=== PATIENT | female | born 1940 | race Caucasian/White ===

== ENCOUNTER 2017-04-01 13:18 | Emergency (ER) | payer OTHER ==
[2017-04-01 14:19] LABS: BASOPHIL % 0.3 % (0-2); PLATELET COUNT 190 x10^3mcL (130-400)
[2017-04-01 14:27] LABS: RED CELL DISTRIBUTION WIDTH 15.5 % (11.5-14.5)
[2017-04-01 14:29] LABS: CALCIUM 8.9 mg/dL (8.5-10.1); CARBON DIOXIDE 29.9 mmol/L (21-32); CHLORIDE SERUM 110 mmol/L (98-107); CREATININE SERUM 1.1 mg/dL (0.6-1.0); GLUCOSE SERUM 100 mg/dL (74-106); POTASSIUM SERUM 3.9 mmol/L (3.5-5.1); SODIUM SERUM 144 mmol/L (136-145)
[2017-04-01 14:42] LABS: ALBUMIN 3.4 g/dL (3.4-5.0); ALKALINE PHOSPHATASE 71 U/L (46-116); ALT/SGPT 17 U/L (14-59); AST/SGOT 25 U/L (15-37); BILIRUBIN TOTAL 0.6 mg/dL (0.20-1.00); T4(THYROXINE) 6.3 ug/dL (4.7-13.3)
[2017-04-01 15:57] LABS: UA SPECIFIC GRAVITY <=1.005 (1.005-1.035); microscopic required? YES; urine erythrocyte 1+ (NEGATIVE)
[2017-04-01 17:36] VITALS: BP 134/79
== END 2017-04-01 17:36 | disposition home or self-care (01) ==
LOC: ED 13:18
PROVIDERS: Emergency Medicine
DX: N39.0 Urinary tract infection, site not specified (principal); G47.00 Insomnia, unspecified; Z85.118 Personal history of other malignant neoplasm of bronchus and lung; Z88.2 Allergy status to sulfonamides; Z88.8 Allergy status to other drugs, medicaments and biological substances
CPT/HCPCS: 36415; J0696

== ENCOUNTER 2017-05-07 11:09 | Inpatient (IN) | payer OTHER ==
[~2017-05-07] VITALS: Ht 172.7 cm; Wt 82.8 kg
[2017-05-07 12:02] LABS: PLATELET COUNT 358 x10^3mcL (130-400)
[2017-05-07 12:12] LABS: CALCIUM 9.1 mg/dL (8.5-10.1); CARBON DIOXIDE 28.3 mmol/L (21-32); CHLORIDE SERUM 107 mmol/L (98-107); CREATININE SERUM 1.1 mg/dL (0.6-1.0); GLUCOSE SERUM 151 mg/dL (74-106); POTASSIUM SERUM 3.8 mmol/L (3.5-5.1); SODIUM SERUM 144 mmol/L (136-145)
[2017-05-07 12:14] LABS: RED CELL DISTRIBUTION WIDTH 16.6 % (11.5-14.5)
[2017-05-07] MEDS ORDERED: LIPI10 PO (12:15)
[2017-05-07 12:23] LABS: microscopic required? YES; urine erythrocyte 2+ (NEGATIVE)
[2017-05-07 13:26] LABS: BAND NEUTROPHIL 4 % (0-10); BASOPHIL 0 % (0-2); MONOCYTE 8 % (0-7); MYELOCYTE 1 % (0-2); PLATELET MORPHOLOGY PLATELETS NORMAL; SEGMENTED NEUTROPHILS 75 % (37-75); rbc morphology (normal/abnorm) ABNORMAL (NORMAL)
[2017-05-07 14:15] VITALS: BP 136/72
[2017-05-07 14:43] VITALS: BP 136/72
[2017-05-07 14:49] VITALS: Ht 172.7 cm; Wt 82.8 kg
[2017-05-07 15:20] LABS: CHOLESTEROL/HDL RATIO 2.7; MAGNESIUM 1.9 mg/dL (1.8-2.4); PHOSPHOROUS 2.4 mg/dL (2.5-4.9)
[2017-05-07 15:37] LABS: FREE T4 1.05 ng/dL (0.76-1.46); FREE THYROXINE INDEX 2.3 ug/dL (1.4-4.5); T4(THYROXINE) 6.2 ug/dL (4.7-13.3)
[2017-05-07 15:47] LABS: T3 TOTAL 0.71 ng/mL
[2017-05-07 17:08] VITALS: BP 126/83
[2017-05-07 17:10] VITALS: BP 136/72
[2017-05-07 17:20] LABS: BILIRUBIN DIRECT 0.11 mg/dL (0.0-0.2); BILIRUBIN TOTAL 0.31 mg/dL (0.20-1.00); TOTAL PROTEIN, SERUM 7.2 g/dL (6.4-8.2)
[2017-05-07 17:22] LABS: ALBUMIN 2.7 g/dL (3.4-5.0)
[2017-05-07 21:36] VITALS: BP 120/64
[2017-05-08 06:02] VITALS: BP 127/83
[2017-05-08 06:53] LABS: PLATELET COUNT 262 x10^3mcL (130-400)
[2017-05-08 07:18] LABS: CALCIUM 8.4 mg/dL (8.5-10.1); CARBON DIOXIDE 30.4 mmol/L (21-32); CHLORIDE SERUM 111 mmol/L (98-107); CREATININE SERUM 0.9 mg/dL (0.6-1.0); GLUCOSE SERUM 101 mg/dL (74-106); PHOSPHOROUS 3.7 mg/dL (2.5-4.9); POTASSIUM SERUM 4.4 mmol/L (3.5-5.1); SODIUM SERUM 147 mmol/L (136-145)
[2017-05-08 07:23] LABS: ALBUMIN 2.3 g/dL (3.4-5.0)
[2017-05-08 07:29] LABS: BASOPHIL % 0 % (0-2); RED CELL DISTRIBUTION WIDTH 16.9 % (11.5-14.5)
[2017-05-08 10:00] VITALS: BP 124/71
[2017-05-08 16:43] VITALS: BP 139/75
[2017-05-08 22:26] VITALS: BP 130/77
[2017-05-09 06:18] VITALS: BP 136/69
[2017-05-09 06:25] LABS: CALCIUM 9.1 mg/dL (8.5-10.1); CARBON DIOXIDE 34.4 mmol/L (21-32); CHLORIDE SERUM 109 mmol/L (98-107); GLUCOSE SERUM 86 mg/dL (74-106); MAGNESIUM 2.1 mg/dL (1.8-2.4); PHOSPHOROUS 4.2 mg/dL (2.5-4.9); POTASSIUM SERUM 4.3 mmol/L (3.5-5.1); SODIUM SERUM 148 mmol/L (136-145)
[2017-05-09 06:35] LABS: PLATELET COUNT 297 x10^3mcL (130-400)
[2017-05-09 06:59] LABS: BASOPHIL % 0 % (0-2)
[2017-05-09 09:46] VITALS: BP 115/51
[2017-05-09 17:20] VITALS: BP 107/63
[2017-05-09 22:16] VITALS: BP 104/68
[2017-05-10 06:07] VITALS: BP 100/66
[2017-05-10 07:25] LABS: PLATELET COUNT 264 x10^3mcL (130-400)
[2017-05-10 07:26] LABS: CALCIUM 8.6 mg/dL (8.5-10.1); CARBON DIOXIDE 27.4 mmol/L (21-32); CHLORIDE SERUM 106 mmol/L (98-107); CREATININE SERUM 1.2 mg/dL (0.6-1.0); GLUCOSE SERUM 98 mg/dL (74-106); MAGNESIUM 2.1 mg/dL (1.8-2.4); PHOSPHOROUS 4.1 mg/dL (2.5-4.9); POTASSIUM SERUM 4.8 mmol/L (3.5-5.1); SODIUM SERUM 141 mmol/L (136-145)
[2017-05-10 07:30] VITALS: BP 123/69
[2017-05-10 07:53] LABS: RED CELL DISTRIBUTION WIDTH 16.6 % (11.5-14.5)
[2017-05-10 09:31] VITALS: BP 107/54
[2017-05-10 09:35] LABS: BAND NEUTROPHIL 3 % (0-10); BASOPHIL 0 % (0-2); MONOCYTE 7 % (0-7); SEGMENTED NEUTROPHILS 85 % (37-75)
[2017-05-10 09:36] LABS: rbc morphology (normal/abnorm) ABNORMAL (NORMAL); tear drop cell (dacryocyte) 1+
[2017-05-10 18:00] VITALS: BP 101/53
[2017-05-10 22:08] VITALS: BP 98/60
[2017-05-11 06:14] VITALS: BP 120/71
[2017-05-11 06:38] LABS: PLATELET COUNT 264 x10^3mcL (130-400)
[2017-05-11 06:50] LABS: BASOPHIL % 0 % (0-2); RED CELL DISTRIBUTION WIDTH 16.8 % (11.5-14.5)
[2017-05-11 06:57] LABS: CALCIUM 8.7 mg/dL (8.5-10.1); CHLORIDE SERUM 108 mmol/L (98-107); CREATININE SERUM 1.1 mg/dL (0.6-1.0); GLUCOSE SERUM 87 mg/dL (74-106); MAGNESIUM 2.3 mg/dL (1.8-2.4); PHOSPHOROUS 3.8 mg/dL (2.5-4.9); POTASSIUM SERUM 4.6 mmol/L (3.5-5.1); SODIUM SERUM 146 mmol/L (136-145)
[2017-05-11 07:45] VITALS: BP 107/60
[2017-05-11] MEDS ORDERED: BD LACTINEX1.4 MG PO (14:19)
[2017-05-11] MEDS ORDERED: MAC100 PO (14:19)
[2017-05-11 14:41] VITALS: BP 107/60
[2017-05-13] MEDS ORDERED: CIPRO500 MG PO (19:58)
== END 2017-05-11 15:31 | disposition home or self-care (01) | DRG 871 ==
LOC: ED 11:09 → MU 13:19 → DU 13:19 → MU 05-08 06:48
PROVIDERS: Emergency Medicine Emergency Medical Services; Family Medicine; ADMIT Family Medicine
DX: A41.9 Sepsis, unspecified organism (principal); N17.0 Acute kidney failure with tubular necrosis; E43 Unspecified severe protein-calorie malnutrition; N39.0 Urinary tract infection, site not specified; E87.0 Hyperosmolality and hypernatremia; K92.2 Gastrointestinal hemorrhage, unspecified; R73.03 Prediabetes; R65.20 Severe sepsis without septic shock; R13.10 Dysphagia, unspecified; E78.5 Hyperlipidemia, unspecified; E83.39 Other disorders of phosphorus metabolism; Z87.442 Personal history of urinary calculi; Z68.27 Body mass index [BMI] 27.0-27.9, adult; Z87.891 Personal history of nicotine dependence; J44.9 Chronic obstructive pulmonary disease, unspecified; Z88.2 Allergy status to sulfonamides; Z88.3 Allergy status to other anti-infective agents; Z88.8 Allergy status to other drugs, medicaments and biological substances; M19.90 Unspecified osteoarthritis, unspecified site; Z98.42 Cataract extraction status, left eye; Z98.41 Cataract extraction status, right eye; Z90.49 Acquired absence of other specified parts of digestive tract; Z96.643 Presence of artificial hip joint, bilateral; Z96.652 Presence of left artificial knee joint; Z83.3 Family history of diabetes mellitus; Z82.49 Family history of ischemic heart disease and other diseases of the circulatory system; Z85.118 Personal history of other malignant neoplasm of bronchus and lung; R31.9 Hematuria, unspecified; E87.8 Other disorders of electrolyte and fluid balance, not elsewhere classified; E83.51 Hypocalcemia
CPT/HCPCS: 82962; 83880; 84439; 92610; J0295; J0696; J1885; J2270; J2405; J3490; J7030; Q0092

== ENCOUNTER 2017-07-16 13:13 | Inpatient (IN) | payer OTHER ==
[~2017-07-16] VITALS: Ht 172.7 cm; Wt 81.7 kg
[~2017-07-16 13:13] MED LIST: BD LACTINEX1.4 MG PO; CIPRO500 MG PO; LIPI10 PO; MAC100 PO
--- NOTE | 2017-07-16 13:45 | NUR ---
BIB DAUGHTER W/ EPISODES OF CRYING & SHAKES & CHILLS. HAS NOT HAD A FEVER. PT JUST HAD A COURSE OF CHEMO MONDAY/MONDAY/MONDAY & WAS TOLD TO COME IF SHE HAD FEVER/CHILLS. PT WAS TO BE GIVEN A NEULASTA SHOT TODAY BUT DAUGHTER HAS NOT YET GIVEN IT. PT WEARING $1000 GRANISETRON PATCH TO LT UPPER ARM. PT WAS DX'ED W/ LUNG CANCER 6 YEARS AGO & WAS TREATED W/ SURGERY (RIGHT UPPER LOBE REMOVED ALONG W/ 15 LYMPH NODES IN CHEST; NO ARM RESTRICTIONS), 25 SESSIONS OF RADIATION & CHEMOTHERAPY. PT HAS RECENT RECURRENCE IN "TISSUE" & JUST HAD 2ND OF PLANNED 3 CYCLES OF CHEMOTHERAPY. RADIATION IS ALSO PLANNED. PT HAS A NEW PORT RT UPPER CHEST W/ SUTURES STILL VISIBLE BUT THAT ARE SUPPOSED TO DISSOLVE. THIS WAS DIAGNOSED BY BIOPSY. PMD-DR. BANKS, ONCOLOGIST-DR. GLASS. PT STATES HAS COUGHED W/ DRINKING THIN LIQUIDS SINCE INITIAL DIAGNOSIS. HAS NOT HAD A SWALLOWING EVALUATION. PT UNABLE TO SWALLOW MANY FOODS & CAN ONLY EAT YOGURT & LIVERWURST. HAS NOT HAD AN EGD. CHRONICALLY POOR APPETITE. PT FEELS WEAK/OUT OF BALANCE WHEN STANDING. PT HAS CHRONIC SOB & POSSIBLY COPD & HAS A RESCUE INHALER. PT HAS CONSTIPATION, STOOLS ARE "ROCKS" & SOMETIMES HAS TO DISIMPACT HERSELF. PT HAS CHRONIC URINARY FREQUENCY, HAS SEEN A UROLOGIST & WAS PUT ON AN OVERACTIVE BLADDER MEDICINE WHICH CUT HER FREQUENCY FROM Q 1 HOUR TO Q 2 HOURS BUT SINCE RESUMING CHEMO SHE IS GOING Q 1 HOUR AGAIN. NO BURNING.
--- NOTE | 2017-07-16 14:30 | NUR ---
SEEN BY DR. NINO. GAVE PT'S OWN NEULASTA PER DR. NINO.
--- NOTE | 2017-07-16 15:05 | NUR ---
URINE DIP TRACE LEUKOCYTES, SPECIMEN TO LAB.
--- NOTE | 2017-07-16 15:15 | NUR ---
ATTEMPTED IV X 1, UNABLE. [employer] ATTEMPTING. PT DECLINED TO HAVE HER PORT ACCESSED STATING IT'S VERY PAINFUL & SHE PREFERS TO BE STUCK.
--- NOTE | 2017-07-16 15:34 | NUR ---
IV FLUIDS BEGAN VIA CONTROLLER @ 500 CC/HR ORDERED.
--- NOTE | 2017-07-16 15:35 | NUR ---
PLACED ON FULL MONITORS.
--- NOTE | 2017-07-16 15:37 | NUR ---
IV ESTABLISHED, BLOOD DRAWN CHEST XRAY DONE, BLOOD CULTURE DRAWN
[2017-07-16 15:50] LABS: BASOPHIL % 0.4 % (0-2); PLATELET COUNT 253 x10^3mcL (130-400)
[2017-07-16 15:52] LABS: UA SPECIFIC GRAVITY <=1.005 (1.005-1.035); microscopic required? YES; urine erythrocyte NEGATIVE (NEGATIVE)
--- NOTE | 2017-07-16 15:52 | NUR ---
12-LEAD WAS DONE.
[2017-07-16 16:01] LABS: RED CELL DISTRIBUTION WIDTH 18.1 % (11.5-14.5)
[2017-07-16 16:03] LABS: CALCIUM 8.8 mg/dL (8.5-10.1); CARBON DIOXIDE 28.8 mmol/L (21-32); CHLORIDE SERUM 106 mmol/L (98-107); CREATININE SERUM 0.8 mg/dL (0.6-1.0); GLUCOSE SERUM 106 mg/dL (74-106); POTASSIUM SERUM 4.3 mmol/L (3.5-5.1); SODIUM SERUM 141 mmol/L (136-145)
[2017-07-16 16:08] LABS: ALKALINE PHOSPHATASE 68 U/L (46-116); ALT/SGPT 29 U/L (14-59); AST/SGOT 20 U/L (15-37); BILIRUBIN TOTAL 0.5 mg/dL (0.20-1.00); CHOLESTEROL 145 mg/dL (<200); HDL CHOLESTEROL 43 mg/dL (40-60); TOTAL PROTEIN, SERUM 6.4 g/dL (6.4-8.2)
--- NOTE | 2017-07-16 16:28 | NUR ---
DR. NINO @ BEDSIDE DISCUSSING RESULTS & PLAN OF CARE.
[2017-07-16] MEDS ORDERED: TYLENOL WITH CO1 TA3 PO (16:30)
[2017-07-16] MEDS ORDERED: GOOD NEIGHBOR P20 M2 PO (16:30)
[2017-07-16] MEDS ORDERED: SANCUSO3.1 MG/24 TD (16:32)
[2017-07-16] MEDS ORDERED: PROAIR HFA8.5 GM INH (16:33)
--- NOTE | 2017-07-16 16:38 | NUR ---
BILAT NARES SWABBED FOR MRSA SCREENING.
--- NOTE | 2017-07-16 17:25 | NUR ---
UP TO BATHROOM W/ STEADY GAIT.
[2017-07-16 17:40] LABS: CHOLESTEROL/HDL RATIO 3.5; MAGNESIUM 2.2 mg/dL (1.8-2.4); PHOSPHOROUS 3.6 mg/dL (2.5-4.9)
[2017-07-16 17:47] LABS: T3 TOTAL 0.81 ng/mL
--- NOTE | 2017-07-16 17:47 | NUR ---
REPORT TO PETE.
[2017-07-16 17:50] LABS: FREE T4 1.05 ng/dL (0.76-1.46); FREE THYROXINE INDEX 2.9 ug/dL (1.4-4.5); T4(THYROXINE) 7.6 ug/dL (4.7-13.3)
--- NOTE | 2017-07-16 18:10 | NUR ---
RECEIVED PT FROM ED VIA [facility], CAME IN DUE TO WEAKNESS AND CHILLS. AAOX4. NO SOB NOTED. DENIES CHEST PAIN/PRESSURE, SINUS TACHYCARDIA ON THE MONITOR. DENIES ABDOMINAL PAIN/NAUSEA/VOMITING. C/O CONSTIPATION AND URINARY FREQUENCY. W/ DRY SCABS AND DISCOLORATIONS ON BUE AND BLE. PALE. PULSES ARE PALPABLE. W/ RIGHT CHEST PORTACATH, W/ SUTURES NOTED. SIDE RAILS UPX2. CALL LIGHT ON REACH. ENDORSED.
[2017-07-16 18:14] VITALS: BP 135/68
[2017-07-16 18:22] VITALS: Ht 172.7 cm; Wt 81.7 kg
--- NOTE | 2017-07-16 18:45 | NUR ---
ASSUMED PT. CARE,RECIEVED PT. AWAKE ALERT AND ORIENTED.DENIES ANY PAIN AT THIS TIME.ORIENTED TO ROOM AND SURROUNDINGS.CALL LIGHT W/ IN REACH. IV FLUIDS STARTED INFUSING WELL TO RT WRIST NO INFILTRATION NOTED. MADE PT COMFORTABLE IN BED.NO ACUTE DISTRESS NOTED .
--- NOTE | 2017-07-16 19:49 | NUR ---
RECEIVED PT FROM PREVIOUS SHIFT NURSE. PT AOX4. TELE #19, ST, HR 100. DENIES CP/PRESSURE. PULSES PRESENT, NO EDEMA NOTED. LUNG SOUNDS DIMINISHED, ON RA. DENIES SOB/DIFFICULTY BREATHING. BOWEL SOUNDS ACTIVE. VOIDS FREELY. GENERALIZED WEAKNESS. BUE AND BLE DRY SCABS AND DISCOLORATION. IV IN R. WRIST, INTACT AND PATENT. BED IN LOWEST POSITION. CALL LIGHT WITHIN REACH. WILL CONTINUE TO MONITOR.
[2017-07-16 21:25] VITALS: BP 123/80
--- NOTE | 2017-07-17 02:34 | NUR ---
PT RESTING IN BED. RR EVEN AND UNLABORED. NO ACUTE DISTRESS NOTED. CALL LIGHT WITHIN REACH. BED IN LOWEST POSITION. WILL CONTINUE TO MONITOR.
[2017-07-17 05:37] VITALS: BP 136/86
[2017-07-17 06:58] LABS: PLATELET COUNT 234 x10^3mcL (130-400)
--- NOTE | 2017-07-17 07:20 | NUR ---
RECEIVED PT LAYING IN BED. PT WAS TEARFUL. HELD PTS HAND AND ENCOURAGED HER TO EXPRESS HER FEELINGS. STATED SHE HAS BEEN FEELING TEARFUL FOR A FEW DAYS NOW AND SHE ISNT SURE WHY. PROVIDED SUPPORT. PT VERY KIND. IV ACCESS TO RIGHT WRIST APPEARS TO BE COMING UNDONE, WITH TEGADERM PEELING OFF AND DRIED BLOOD AROUND SITE AND TAPE, BUT APPEARS TO BE INFUSING WELL AT THIS TIME. WILL MONITOR FOR THE NEED FOR POSSIBLE INITIATION OF NEW ACCESS SITE. CALL LIGHT WITHIN REACH. BED IN LOWEST POSITION. ENCOURAGED TO CALL FOR ASSISTANCE WHEN NEEDED. WILL CONTINUE TO MONITOR
--- NOTE | 2017-07-17 07:26 | NUR ---
PT BEING TAKEN DOWN FOR CT.
--- NOTE | 2017-07-17 07:37 | NUR ---
PT RETURNED FROM CT. IV SITE WAS SALINE LOCKED. HAS BEEN RESTARTED AT 100ML/HR ORDERED
[2017-07-17 07:42] LABS: CALCIUM 8.6 mg/dL (8.5-10.1); CHLORIDE SERUM 110 mmol/L (98-107); CREATININE SERUM 0.8 mg/dL (0.6-1.0); GLUCOSE SERUM 97 mg/dL (74-106); PHOSPHOROUS 3.1 mg/dL (2.5-4.9); POTASSIUM SERUM 3.9 mmol/L (3.5-5.1); SODIUM SERUM 147 mmol/L (136-145)
[2017-07-17 08:04] LABS: RED CELL DISTRIBUTION WIDTH 18.3 % (11.5-14.5)
--- NOTE | 2017-07-17 08:10 | NUR ---
LAB CALLED STATING PT HAS WBC OF 50.5, LAST WBC WAS 10.3. PAGED AND SENT [place] TO DR. PARK. AWAITING RESPONSE. AT THIS TIME. PT APPEARS ASYMPTOMATIC. NO FEVER, CHILLS, FLUSH, BODY ACHES, ETC. WILL CONTINUE TO MONITOR
[2017-07-17 08:20] LABS: BAND NEUTROPHIL 4 % (0-10); BASOPHIL 0 % (0-2); MONOCYTE 1 % (0-7); SEGMENTED NEUTROPHILS 95 % (37-75); rbc morphology (normal/abnorm) ABNORMAL (NORMAL)
[2017-07-17 08:21] LABS: PLATELET MORPHOLOGY PLATELETS NORMAL; schistocyte (helmet cell) 1+
--- NOTE | 2017-07-17 09:22 | NUR ---
AM ROUNDS DONE, PER DR. STRONG, PT WILL STAY FOR CONTINUED ABX THERAPY DUE TO UTI. PT AWAKE AND ALERT, AND AGREES TO PLAN OF CARE. WILL CONTINUE TO MONITOR
[2017-07-17 09:27] VITALS: BP 138/89
--- NOTE | 2017-07-17 11:06 | NUR ---
PT IS CURRENTLY RESTING IN BED EYES CLOSED. MENTIONED EARLIER THAT SHE HASN'T GOTTEN MUCH REST SINCE ARRIVING BECAUSE OF EVERYONE COMING IN AND OUT. TOLD PT I WOULD TRY TO LIMIT THE AMOUNT OF TIMES WE AWAKEN HER TO ONLY IMPAIRATIVE ISSUES SO THAT SHE COULD CATCH UP ON REST.
--- NOTE | 2017-07-17 11:26 | NUR ---
PT HAD ONE EPISODE OF EMESIS. STATES THAT ITS PROBABL FROM THE ORANGE JUICE BEING TOO ACIDIC AND SHE HAS'T BEEN ABLE TO EAT MUCH SO SHE WAS GIVEN APPLE JUICE INSTEAD. PAGED DR. PARK TO FOLLOW UP PREVIOUS REQUEST TO HAVE DIETARY SHAKE ORDER PUT IN
[2017-07-17 11:28] LABS: PLATELET COUNT 238 x10^3mcL (130-400)
--- NOTE | 2017-07-17 11:34 | NUR ---
PER LAB, WBC NOW UP TO 52.9. PAGED DR. PARK. AWAITING RESPONSE. PT IS CURRENTLY CONTINUES TO BE ASYMPOTMATIC AT THIS TIME. CALL LIGHT WITHIN REACH, FAMILY AT BEDSIDE. WILL CONTINUE TO MONITOR
[2017-07-17 11:35] LABS: RED CELL DISTRIBUTION WIDTH 17.7 % (11.5-14.5)
[2017-07-17 11:37] LABS: BAND NEUTROPHIL 2 % (0-10); BASOPHIL 0 % (0-2); SEGMENTED NEUTROPHILS 98 % (37-75)
[2017-07-17 11:38] LABS: PLATELET MORPHOLOGY PLATELETS NORMAL; rbc morphology (normal/abnorm) ABNORMAL (NORMAL)
[2017-07-17 11:39] LABS: PATH REVIEW for HEMA YES
--- NOTE | 2017-07-17 11:58 | NUR ---
DR. PARK STATED THAT PER THE DIETITIAN, THEY WANT TO WAIT TO ORDER THE DIETARY [place]KE UNTIL THE SWALLOW EVAL IS COMPLETED. PT IS AWARE
[2017-07-17 12:55] VITALS: BP 142/82
--- NOTE | 2017-07-17 13:41 | NUR ---
S: PATIENT SEEN AT BEDSIDE. SHE WAS USING AN EMESIS BAG TO SPIT UP STOMACH CONTENTS, PHLEGM. SHE WAS ALERT, VERBAL, GOOD HISTORIAN. O: BEDSIDE SWALLOW EVALUATION A: PATIENT PRESENTS WITH EFFICACY OF OROPHARYNGEAL PHASE OF SWALLOW INTACT. 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 HX OF WEIGHT LOSS COMPLAINTS CONSISTENT WITH GERD/ESOPHAGEAL PHASE DYSPHAGIA: BELCHING S/P SWALLOW, FEELING OF FOOD STUCK IN THROAT/GLOBUS, SPUTUM POST SWALLOW, AFTERTASTE FROM SWALLOW OF LIQUIDS P: PATIENT NEEDS DIET OF WET/SLIPPERY FOODS AND NEEDS TO AVOID DRY/STICKY/CRUMBLY FOODS RECOMMENDED OTC MOUTH MOISTENERS TO USE PRIOR TO P.O. RECOMMENDED USE OF NUTRITIONAL SUPPLEMENTS TO SUPPORT CALORIC INTAKE RECOMMEND ESOPHAGRAM TO RULE OUT ESOPHAGEAL DYSMOTILITY/ OBSTRUCTION/CONSTRICTION THANK YOU FOR THIS REFERRAL. Kylee KAMARA MA/MSLP
--- NOTE | 2017-07-17 16:03 | NUR ---
PT CONTINUES TO HAVE N/V. STATES THAT SHE THINKS ITS FROM THE STOOL SOFTENER. HAS EMESIS ON HAND AND HAS HAD ANOTHER EPISODE OF EMESIS THAT APPEARS TO BE STOMACH ACID, BEING YELLOWISH IS COLOR. GIVEN ZOFRAN IVP PRN. CALL LIGHT WITHIN REACH. WILL CONTINUE TO MONITOR
[2017-07-17 17:20] VITALS: BP 128/79
--- NOTE | 2017-07-17 18:48 | NUR ---
PT IS CURRENTLY LAYING IN BED EYES CLOSED. NO APPARENT SIGNS OF ACUTE DISTRESS. KITCHEN BROUGHT UP NOVASOURCE DIETARY SHAKE BECAUSE IT WAS NOT ON DINNER TRAY. ON BEDSIDE TABLE. WILL ENDORSE TO NEXT SHIFT
--- NOTE | 2017-07-17 19:30 | NUR ---
OFFERED PT. ZOFRAN FOR NAUSEA, PT. REFUSED. WILL CONTINUE TO MONTIOR.
--- NOTE | 2017-07-17 19:30 | NUR ---
PT.IS A/O X3. PT. IS CRYING, COMFORT MEASURED USED, PT IS NOW CALM. NO SIGNS OF RESP. DISTRTESS. LUNG SOUNDS CLEAR BILATERAL. TELE #19 HR 104, NST. PEDIAL PULSES PRESENT, NO EDEMA PRESENT. BOWEL SOUNDS X4. PT. COMPLAINS OF NAUSEA. SKIN BUE/BLE HAS OLD SCABS AND DISCOLORATIONS. IV NS PER MD ON RFA. ALL ADLS MET. CALL LIGHT WITHIN REACH. WILL CONTINUE TO MONTIOR.
--- NOTE | 2017-07-17 21:22 | NUR ---
PT. COMPLAINING OF NAUSEA. GAVE PRN ZOFRAN IVP. PT TOLERATED WELL. WILL CONTINUE TO MONITOR PT.
[2017-07-17 21:42] VITALS: BP 125/76
--- NOTE | 2017-07-18 | NUR ---
PT. IS RESTING IN BED. NO SIGNS OF DISTRESS. BED IN LOWEST SETING. CALL LIGHT WITHIN REACH. WILL CONTINUE TO MONTIOR PT.
--- NOTE | 2017-07-18 05:00 | NUR ---
PT IS RESTING IN BED. PT IS COMPLAINING OF NAUSEA. ZOFRAN PRN WILL BE GIVEN WITH 0600 MEDS PER PT REQUEST. NO SIGNS OF RESP. DISTRESS. ALL ADLS MET. BED IN LOWEST SETTING. CALL LIGHT WITHIN REACH. WILL CONTINUE TO MONITOR.
[2017-07-18 06:23] VITALS: BP 156/89
[2017-07-18 06:30] LABS: CALCIUM 8.3 mg/dL (8.5-10.1); CARBON DIOXIDE 27.3 mmol/L (21-32); CHLORIDE SERUM 112 mmol/L (98-107); CREATININE SERUM 0.7 mg/dL (0.6-1.0); GLUCOSE SERUM 103 mg/dL (74-106); POTASSIUM SERUM 3.7 mmol/L (3.5-5.1); SODIUM SERUM 148 mmol/L (136-145)
[2017-07-18 07:00] LABS: PLATELET COUNT 195 x10^3mcL (130-400)
[2017-07-18 07:10] LABS: RED CELL DISTRIBUTION WIDTH 17.3 % (11.5-14.5)
--- NOTE | 2017-07-18 08:19 | NUR ---
ROUNDS WITH DR HODGSON AND MEDICAL TEAM, UPDATED PT ON CURRENT POC.
--- NOTE | 2017-07-18 09:16 | NUR ---
ABLE TO TAKE ALL PO MEDS WITHOUT GI DISTRESS, NAUSEA IS CONTROLLED AT THIS TIME, CALL LIGHT WITHIN REACH, WILL CONTINUE TO PROVIDE CARE.
[2017-07-18 09:59] LABS: BAND NEUTROPHIL 4 % (0-10); BASOPHIL 0 % (0-2); SEGMENTED NEUTROPHILS 93 % (37-75)
[2017-07-18 10:01] VITALS: BP 131/68
[2017-07-18 10:06] LABS: rbc morphology (normal/abnorm) ABNORMAL (NORMAL)
[2017-07-18 10:07] LABS: PLATELET MORPHOLOGY PLATELETS NORMAL
--- NOTE | 2017-07-18 11:10 | NUR ---
IV AT RFA INFILTRATED, REDNESS AND EDEMA NOTED AT SITE, DENIES PAIN OR WARMTH, IV D/C'D, CATH TIP INTACT, SCANT AMOUNT OF BLOOD NOTED, PRESSURE APPLIED FOR THREE MINUTES, COVERED WITH BANDAID, ICE PACK APPLIED TO RFA, PT TOLERATED WITHOUT DISTRESS, CALL LIGHT WITHIN REACH. DR BERNABE COVERING FOR DR PARK MADE AWARE, DR BERNABE STATES PLANS OF DISCHARGE ARE STILL ON, PT IS ABLE TO DRINK FLUIDS, NO NEED TO RESTART IV AT THIS TIME.
[2017-07-18 13:17] VITALS: BP 145/85
[2017-07-18 15:42] VITALS: BP 145/85
--- NOTE | 2017-07-18 16:34 | NUR ---
PT DISCHARGED HOME, REVIEWED DISCHARGE INSTRUCTIONS WITH PATIENT AND DAUGHTER, INCLUDING FOLLOW UP APPOINTMENT WITH PCP ON 07/24/17, PATIENT AND DAUGHTER VERBALIZED UNDERSTANDING OF DISCHARGE INSTRUCTIONS. TELE MONITOR REMOVED, PT ASSISTED DOWNSTAIRS VIA WHEELCHAIR BY PRIMARY RN AND DAUGHTER.
== END 2017-07-18 16:28 | disposition home or self-care (01) | DRG 871 ==
LOC: ED 13:13 → DU 17:03
PROVIDERS: Emergency Medicine; Family Medicine Sports Medicine; ADMIT Student in an Organized Health Care Education/Training Program
DX: A41.9 Sepsis, unspecified organism (principal); N17.0 Acute kidney failure with tubular necrosis; N39.0 Urinary tract infection, site not specified; C34.11 Malignant neoplasm of upper lobe, right bronchus or lung; E44.0 Moderate protein-calorie malnutrition; R73.03 Prediabetes; E86.0 Dehydration; G90.9 Disorder of the autonomic nervous system, unspecified; D64.9 Anemia, unspecified; E78.00 Pure hypercholesterolemia, unspecified; Z96.643 Presence of artificial hip joint, bilateral; Z96.652 Presence of left artificial knee joint; Z68.27 Body mass index [BMI] 27.0-27.9, adult; Z88.2 Allergy status to sulfonamides; Z88.8 Allergy status to other drugs, medicaments and biological substances; Z91.018 Allergy to other foods; Z82.49 Family history of ischemic heart disease and other diseases of the circulatory system; Z83.3 Family history of diabetes mellitus; Z90.49 Acquired absence of other specified parts of digestive tract; Z98.49 Cataract extraction status, unspecified eye
CPT/HCPCS: 82962; 83880; 84439; 85060; J0696; J2405; J3535; J7030; Q0092

== ENCOUNTER 2017-09-17 07:54 | Inpatient (IN) | payer OTHER ==
[~2017-09-17] VITALS: Ht 172.7 cm; Wt 77.4 kg
[~2017-09-17 07:54] MED LIST changes: +GOOD NEIGHBOR P20 M2 PO; +PROAIR HFA8.5 GM INH; +SANCUSO3.1 MG/24 TD; +TYLENOL WITH CO1 TA3 PO
[2017-09-17 09:00] LABS: PLATELET COUNT 213 x10^3mcL (130-400)
[2017-09-17 09:04] LABS: CALCIUM 9.5 mg/dL (8.5-10.1); CARBON DIOXIDE 29.2 mmol/L (21-32); CHLORIDE SERUM 111 mmol/L (98-107); CREATININE SERUM 1.1 mg/dL (0.6-1.0); GLUCOSE SERUM 120 mg/dL (74-106); POTASSIUM SERUM 4.1 mmol/L (3.5-5.1); SODIUM SERUM 146 mmol/L (136-145)
[2017-09-17 09:13] LABS: ALKALINE PHOSPHATASE 91 U/L (46-116); ALT/SGPT 16 U/L (14-59); AST/SGOT 20 U/L (15-37); BILIRUBIN TOTAL 0.66 mg/dL (0.20-1.00); LIPASE 60 IU/L (73-393); TOTAL PROTEIN, SERUM 6.4 g/dL (6.4-8.2)
[2017-09-17 09:17] LABS: ALBUMIN 2.6 g/dL (3.4-5.0)
[2017-09-17 09:23] LABS: RED CELL DISTRIBUTION WIDTH 18.2 % (11.5-14.5)
[2017-09-17 09:35] LABS: UA SPECIFIC GRAVITY <=1.005 (1.005-1.035); microscopic required? YES; urine erythrocyte 2+ (NEGATIVE)
[2017-09-17 11:07] LABS: BAND NEUTROPHIL 4 % (0-10); BASOPHIL 0 % (0-2); MONOCYTE 5 % (0-7); SEGMENTED NEUTROPHILS 86 % (37-75)
[2017-09-17 11:08] LABS: rbc morphology (normal/abnorm) ABNORMAL (NORMAL)
[2017-09-17 13:35] LABS: CHOLESTEROL/HDL RATIO 2.9; MAGNESIUM 1.6 mg/dL (1.8-2.4); PHOSPHOROUS 4.1 mg/dL (2.5-4.9)
[2017-09-17 13:45] LABS: FREE T4 1.13 ng/dL (0.76-1.46); FREE THYROXINE INDEX 2.3 ug/dL (1.4-4.5); T4(THYROXINE) 6.3 ug/dL (4.7-13.3)
[2017-09-17 14:03] VITALS: BP 121/69
[2017-09-17 17:07] VITALS: BP 121/69
[2017-09-17 17:11] VITALS: BP 100/50
[2017-09-17 19:05] VITALS: BP 103/49
[2017-09-17 21:46] VITALS: BP 104/64
[2017-09-18 04:34] VITALS: BP 127/66
[2017-09-18 08:54] VITALS: BP 114/72
[2017-09-18 11:55] VITALS: BP 115/64
[2017-09-18 16:17] VITALS: BP 103/68
[2017-09-18 21:24] VITALS: BP 113/62
[2017-09-19 05:55] VITALS: BP 135/91
[2017-09-19 06:32] LABS: CALCIUM 8.8 mg/dL (8.5-10.1); CARBON DIOXIDE 26.6 mmol/L (21-32); CHLORIDE SERUM 118 mmol/L (98-107); GLUCOSE SERUM 103 mg/dL (74-106); MAGNESIUM 1.8 mg/dL (1.8-2.4); PHOSPHOROUS 2.7 mg/dL (2.5-4.9); SODIUM SERUM 152 mmol/L (136-145)
[2017-09-19 06:51] LABS: PLATELET COUNT 172 x10^3mcL (130-400)
[2017-09-19 06:56] LABS: BASOPHIL % 0.1 % (0-2)
[2017-09-19 09:34] VITALS: BP 135/67
[2017-09-19 13:53] VITALS: BP 107/49
[2017-09-19 16:52] VITALS: BP 116/80
[2017-09-19 17:40] LABS: CALCIUM 8.3 mg/dL (8.5-10.1); CARBON DIOXIDE 26.9 mmol/L (21-32); CHLORIDE SERUM 115 mmol/L (98-107); GLUCOSE SERUM 103 mg/dL (74-106); POTASSIUM SERUM 3.6 mmol/L (3.5-5.1); SODIUM SERUM 148 mmol/L (136-145)
[2017-09-19 21:53] VITALS: BP 115/75
[2017-09-19 21:55] LABS: PLATELET COUNT 159 x10^3mcL (130-400)
[2017-09-19 21:58] LABS: BASOPHIL % 0 % (0-2); RED CELL DISTRIBUTION WIDTH 18.2 % (11.5-14.5)
[2017-09-20 06:13] VITALS: BP 145/86
[2017-09-20 06:44] LABS: PLATELET COUNT 178 x10^3mcL (130-400)
[2017-09-20 06:45] LABS: CALCIUM 8.7 mg/dL (8.5-10.1); CARBON DIOXIDE 29.7 mmol/L (21-32); CHLORIDE SERUM 118 mmol/L (98-107); CREATININE SERUM 0.9 mg/dL (0.6-1.0); GLUCOSE SERUM 92 mg/dL (74-106); POTASSIUM SERUM 4.2 mmol/L (3.5-5.1); SODIUM SERUM 153 mmol/L (136-145)
[2017-09-20 07:13] LABS: BASOPHIL % 0 % (0-2); RED CELL DISTRIBUTION WIDTH 18.3 % (11.5-14.5)
[2017-09-20 10:35] VITALS: BP 129/61
[2017-09-20] MEDS ORDERED: BD LACTINEX1.4 MG PO (10:40)
[2017-09-20] MEDS ORDERED: KEFLEX500 M1 PO (10:40)
[2017-09-20 13:46] VITALS: BP 129/61
[2017-09-20] MEDS ORDERED: METOPROLOL TART25 M1 PO (13:46)
== END 2017-09-20 14:57 | disposition home or self-care (01) | DRG 871 ==
LOC: ED 07:54 → DU 11:04
PROVIDERS: Emergency Medicine; Family Medicine; Urology; ADMIT Student in an Organized Health Care Education/Training Program
PROC: 0T768DZ Dilation of Right Ureter with Intraluminal Device, Via Natural or Artificial Opening Endoscopic (ICD-10-PCS; 2017-09-17)
PROC: BT1D1ZZ Fluoroscopy of Right Kidney, Ureter and Bladder using Low Osmolar Contrast (ICD-10-PCS; principal; 2017-09-17 17:00)
DX: A41.9 Sepsis, unspecified organism (principal); E43 Unspecified severe protein-calorie malnutrition; N13.6 Pyonephrosis; E87.0 Hyperosmolality and hypernatremia; E78.5 Hyperlipidemia, unspecified; K21.9 Gastro-esophageal reflux disease without esophagitis; M19.90 Unspecified osteoarthritis, unspecified site; Z96.643 Presence of artificial hip joint, bilateral; Z96.652 Presence of left artificial knee joint; J06.9 Acute upper respiratory infection, unspecified; D50.9 Iron deficiency anemia, unspecified; E83.51 Hypocalcemia; R31.9 Hematuria, unspecified; Z85.110 Personal history of malignant carcinoid tumor of bronchus and lung; Z87.891 Personal history of nicotine dependence; Z68.25 Body mass index [BMI] 25.0-25.9, adult; Z90.49 Acquired absence of other specified parts of digestive tract; Z90.89 Acquired absence of other organs; Z88.2 Allergy status to sulfonamides; Z88.6 Allergy status to analgesic agent; Z91.041 Radiographic dye allergy status; Z79.899 Other long term (current) drug therapy; Z98.42 Cataract extraction status, left eye; Z98.41 Cataract extraction status, right eye; Z90.2 Acquired absence of lung [part of]; Z83.3 Family history of diabetes mellitus; Z82.49 Family history of ischemic heart disease and other diseases of the circulatory system
CPT/HCPCS: 51610; 76001; 83880; 84439; C1769; C2625; J0696; J1885; J2250; J2405; J2704; J3010; J7030; J7120; Q0092; Q9967

== ENCOUNTER 2018-01-08 15:57 | Inpatient (IN) | payer OTHER ==
[~2018-01-08] VITALS: Ht 172.7 cm; Wt 75.5 kg
[~2018-01-08 15:57] MED LIST changes: +KEFLEX500 M1 PO; +METOPROLOL TART25 M1 PO
[2018-01-08 16:02] VITALS: Ht 172.7 cm; Wt 75.5 kg
[2018-01-08 17:02] LABS: BASOPHIL % 0.4 % (0-2); PLATELET COUNT 300 x10^3mcL (130-400)
[2018-01-08 17:15] LABS: CALCIUM 8.9 mg/dL (8.5-10.1); CARBON DIOXIDE 25.1 mmol/L (21-32); CHLORIDE SERUM 106 mmol/L (98-107); CREATININE SERUM 1.5 mg/dL (0.6-1.0); GLUCOSE SERUM 114 mg/dL (74-106); POTASSIUM SERUM 3.3 mmol/L (3.5-5.1); SODIUM SERUM 140 mmol/L (136-145)
[2018-01-08 17:19] LABS: ALKALINE PHOSPHATASE 108 U/L (46-116); ALT/SGPT 14 U/L (14-59); AST/SGOT 19 U/L (15-37); BILIRUBIN TOTAL 0.9 mg/dL (0.20-1.00); LIPASE 42 IU/L (73-393); TOTAL PROTEIN, SERUM 7.2 g/dL (6.4-8.2)
[2018-01-08 17:21] LABS: ALBUMIN 2.5 g/dL (3.4-5.0)
[2018-01-08 21:55] LABS: UA SPECIFIC GRAVITY <=1.005 (1.005-1.035); microscopic required? YES; urine erythrocyte 2+ (NEGATIVE)
[2018-01-08 22:12] LABS: AMPHETAMINE QUAL UR NONE DETECTED (NEG <=1000)
[2018-01-08 22:48] VITALS: BP 101/53
[2018-01-09] VITALS (8 sets, daily range): BP systolic 81–141; BP diastolic 43–111
[2018-01-09 02:03] LABS: T3 TOTAL 0.81 ng/mL
[2018-01-09 02:09] LABS: MAGNESIUM 1.9 mg/dL (1.8-2.4); PHOSPHOROUS 4.1 mg/dL (2.5-4.9)
[2018-01-09 02:11] LABS: CHOLESTEROL/HDL RATIO 3.5
[2018-01-09 02:15] LABS: FREE T4 0.97 ng/dL (0.76-1.46); FREE THYROXINE INDEX 1.6 ug/dL (1.4-4.5); T4(THYROXINE) 4.8 ug/dL (4.7-13.3)
[2018-01-09 08:15] LABS: BASOPHIL % 0.2 % (0-2); PLATELET COUNT 224 x10^3mcL (130-400)
[2018-01-09 08:16] LABS: CALCIUM 8.1 mg/dL (8.5-10.1); CARBON DIOXIDE 24.8 mmol/L (21-32); CHLORIDE SERUM 113 mmol/L (98-107); CREATININE SERUM 1.6 mg/dL (0.6-1.0); GLUCOSE SERUM 77 mg/dL (74-106); POTASSIUM SERUM 3.8 mmol/L (3.5-5.1); SODIUM SERUM 149 mmol/L (136-145)
[2018-01-09 08:23] LABS: RED CELL DISTRIBUTION WIDTH 17.1 % (11.5-14.5)
[2018-01-10 06:08] LABS: BASOPHIL % 0.1 % (0-2); PLATELET COUNT 175 x10^3mcL (130-400)
[2018-01-10 06:11] VITALS: BP 101/55
[2018-01-10 06:48] LABS: CALCIUM 7.6 mg/dL (8.5-10.1); CARBON DIOXIDE 22.8 mmol/L (21-32); CHLORIDE SERUM 116 mmol/L (98-107); CREATININE SERUM 1.8 mg/dL (0.6-1.0); GLUCOSE SERUM 86 mg/dL (74-106); MAGNESIUM 1.6 mg/dL (1.8-2.4); PHOSPHOROUS 3.9 mg/dL (2.5-4.9); POTASSIUM SERUM 4.2 mmol/L (3.5-5.1); RED CELL DISTRIBUTION WIDTH 16.8 % (11.5-14.5); SODIUM SERUM 144 mmol/L (136-145); rbc morphology (normal/abnorm) ABNORMAL (NORMAL)
[2018-01-10 14:45] VITALS: BP 147/111
[2018-01-10 17:55] VITALS: BP 98/47
[2018-01-10 22:19] VITALS: BP 95/58
[2018-01-11 06:20] VITALS: BP 132/64
[2018-01-11 06:22] LABS: PLATELET COUNT 174 x10^3mcL (130-400)
[2018-01-11 06:43] LABS: BASOPHIL % 0 % (0-2)
[2018-01-11 06:45] LABS: CALCIUM 8.1 mg/dL (8.5-10.1); CARBON DIOXIDE 21.6 mmol/L (21-32); CHLORIDE SERUM 118 mmol/L (98-107); CREATININE SERUM 1.5 mg/dL (0.6-1.0); GLUCOSE SERUM 79 mg/dL (74-106); MAGNESIUM 1.7 mg/dL (1.8-2.4); PHOSPHOROUS 3.2 mg/dL (2.5-4.9); POTASSIUM SERUM 3.6 mmol/L (3.5-5.1); SODIUM SERUM 149 mmol/L (136-145)
[2018-01-11 08:42] VITALS: BP 113/66
[2018-01-11 17:00] VITALS: BP 113/53
[2018-01-11 21:16] VITALS: BP 107/62
[2018-01-12 05:00] VITALS: BP 113/60
[2018-01-12 06:37] LABS: BASOPHIL % 0.2 % (0-2); PLATELET COUNT 185 x10^3mcL (130-400)
[2018-01-12 06:48] LABS: CALCIUM 7.9 mg/dL (8.5-10.1); CARBON DIOXIDE 23.4 mmol/L (21-32); CHLORIDE SERUM 120 mmol/L (98-107); CREATININE SERUM 1.3 mg/dL (0.6-1.0); GLUCOSE SERUM 80 mg/dL (74-106); MAGNESIUM 1.7 mg/dL (1.8-2.4); POTASSIUM SERUM 3.4 mmol/L (3.5-5.1); SODIUM SERUM 150 mmol/L (136-145)
[2018-01-12 07:09] LABS: RED CELL DISTRIBUTION WIDTH 17.3 % (11.5-14.5); rbc morphology (normal/abnorm) ABNORMAL (NORMAL)
[2018-01-12 09:11] VITALS: BP 103/66
[2018-01-12 13:44] VITALS: BP 109/69
[2018-01-12] MEDS ORDERED: DIF100 PO (16:20)
[2018-01-12] MEDS ORDERED: MECLIZINE HCL12.5 MG PO (16:21)
[2018-01-12] MEDS ORDERED: CYCLOBENZAPRINE5 MG PO (16:22)
[2018-01-12 16:43] LABS: CALCIUM 7.8 mg/dL (8.5-10.1); CARBON DIOXIDE 25.7 mmol/L (21-32); CHLORIDE SERUM 110 mmol/L (98-107); CREATININE SERUM 1.3 mg/dL (0.6-1.0); GLUCOSE SERUM 100 mg/dL (74-106); POTASSIUM SERUM 3.1 mmol/L (3.5-5.1); SODIUM SERUM 132 mmol/L (136-145)
[2018-01-12 16:56] VITALS: BP 103/67
== END 2018-01-12 22:20 | DRG 698 ==
LOC: ED 15:57 → MU 20:59 → DU 20:59 → MU 01-09 08:50
PROVIDERS: Emergency Medicine; Family Medicine; Radiology Diagnostic Radiology
PROC: 0T9030Z Drainage of Right Kidney with Drainage Device, Percutaneous Approach (ICD-10-PCS; principal; 2018-01-09 14:00)
DX: T83.113A Breakdown (mechanical) of other urinary stents, initial encounter (principal); E43 Unspecified severe protein-calorie malnutrition; N17.0 Acute kidney failure with tubular necrosis; I63.9 Cerebral infarction, unspecified; N13.2 Hydronephrosis with renal and ureteral calculous obstruction; C79.31 Secondary malignant neoplasm of brain; E87.0 Hyperosmolality and hypernatremia; Q60.0 Renal agenesis, unilateral; N39.0 Urinary tract infection, site not specified; I95.89 Other hypotension; R31.29 Other microscopic hematuria; E86.0 Dehydration; E87.6 Hypokalemia; Z96.1 Presence of intraocular lens; Z96.643 Presence of artificial hip joint, bilateral; Z96.652 Presence of left artificial knee joint; D64.9 Anemia, unspecified; M19.90 Unspecified osteoarthritis, unspecified site; E78.5 Hyperlipidemia, unspecified; K58.9 Irritable bowel syndrome, unspecified; Y84.8 Other medical procedures as the cause of abnormal reaction of the patient, or of later complication, without mention of misadventure at the time of the procedure; J44.9 Chronic obstructive pulmonary disease, unspecified; K21.9 Gastro-esophageal reflux disease without esophagitis; Z85.118 Personal history of other malignant neoplasm of bronchus and lung; Z92.21 Personal history of antineoplastic chemotherapy; Z90.2 Acquired absence of lung [part of]; Z87.891 Personal history of nicotine dependence; Z87.442 Personal history of urinary calculi; Z98.42 Cataract extraction status, left eye; Z98.41 Cataract extraction status, right eye; Z68.23 Body mass index [BMI] 23.0-23.9, adult; Z88.2 Allergy status to sulfonamides; Z88.8 Allergy status to other drugs, medicaments and biological substances; Z91.041 Radiographic dye allergy status; Z90.49 Acquired absence of other specified parts of digestive tract; Z82.49 Family history of ischemic heart disease and other diseases of the circulatory system; Z83.3 Family history of diabetes mellitus; Y92.89 Other specified places as the place of occurrence of the external cause
CPT/HCPCS: 83880; 84439; 97110-GP; 97116-GP; 97530-GP; C1729; C1884; J0696; J1644; J2001; J2250; J2405; J2543; J2765; J3010; J7030; J7040; J7060; J8597; Q0092; Q9967

== ENCOUNTER 2018-02-02 20:45 | Inpatient (IN) | payer OTHER ==
[~2018-02-02] VITALS: Ht 172.7 cm; Wt 74.1 kg
[~2018-02-02 20:45] MED LIST changes: +CYCLOBENZAPRINE5 MG PO; +DIF100 PO; +MECLIZINE HCL12.5 MG PO
[2018-02-02 21:33] LABS: BASOPHIL % 0.4 % (0-2)
[2018-02-02 21:39] LABS: CALCIUM 9.3 mg/dL (8.5-10.1); CARBON DIOXIDE 23.9 mmol/L (21-32); CHLORIDE SERUM 102 mmol/L (98-107); GLUCOSE SERUM 148 mg/dL (74-106); POTASSIUM SERUM 4.4 mmol/L (3.5-5.1); SODIUM SERUM 139 mmol/L (136-145)
[2018-02-02 21:44] LABS: ALBUMIN 1.9 g/dL (3.4-5.0); ALKALINE PHOSPHATASE 127 U/L (46-116); ALT/SGPT 16 U/L (14-59); AST/SGOT 32 U/L (15-37); BILIRUBIN TOTAL 0.51 mg/dL (0.20-1.00); MAGNESIUM 2.2 mg/dL (1.8-2.4); TOTAL PROTEIN, SERUM 7.5 g/dL (6.4-8.2)
[2018-02-02 21:47] LABS: RED CELL DISTRIBUTION WIDTH 18.6 % (11.5-14.5)
[2018-02-02 21:48] LABS: PLATELET COUNT 585 x10^3mcL (130-400)
[2018-02-02 22:05] LABS: rbc morphology (normal/abnorm) ABNORMAL (NORMAL)
[2018-02-02 23:35] LABS: microscopic required? YES; urine erythrocyte 2+ (NEGATIVE)
[2018-02-03] VITALS (9 sets, daily range): BP systolic 72–139; BP diastolic 32–76
[2018-02-03] MEDS ORDERED: CRANBERRY450 M3 PO
[2018-02-03] MEDS ORDERED: VITC PO
[2018-02-03] MEDS ORDERED: FLUCONAZOLE100 MG PO (00:01)
[2018-02-03] MEDS ORDERED: LIPI10 PO (00:01)
[2018-02-03] MEDS ORDERED: CYCLOBENZAPRINE5 MG PO (00:01)
[2018-02-03] MEDS ORDERED: MECLIZINE HYD12.5 MG PO (00:01)
[2018-02-03] MEDS ORDERED: GOOD SENSE OMEP20 MG PO (00:02)
[2018-02-03 01:36] LABS: AMPHETAMINE QUAL UR NONE DETECTED (NEG <=1000)
[2018-02-03 04:01] LABS: CHOLESTEROL/HDL RATIO 4.2
[2018-02-03 04:19] LABS: FREE T4 0.59 ng/dL (0.76-1.46)
[2018-02-03 04:20] LABS: T4(THYROXINE) 2.9 ug/dL (4.7-13.3)
[2018-02-03 05:37] LABS: T3 TOTAL 0.77 ng/mL
[2018-02-03 06:28] LABS: BASOPHIL % 0.4 % (0-2); PLATELET COUNT 376 x10^3mcL (130-400)
[2018-02-03 06:33] LABS: RED CELL DISTRIBUTION WIDTH 17.9 % (11.5-14.5)
[2018-02-03 06:54] LABS: CALCIUM 7.9 mg/dL (8.5-10.1); CARBON DIOXIDE 23.8 mmol/L (21-32); CHLORIDE SERUM 114 mmol/L (98-107); GLUCOSE SERUM 87 mg/dL (74-106); POTASSIUM SERUM 3.9 mmol/L (3.5-5.1); SODIUM SERUM 144 mmol/L (136-145)
[2018-02-04] VITALS (14 sets, daily range): BP systolic 56–197; BP diastolic 25–71
[2018-02-04 04:36] LABS: BASOPHIL % 0.9 % (0-2); PLATELET COUNT 397 x10^3mcL (130-400)
[2018-02-04 04:37] LABS: RED CELL DISTRIBUTION WIDTH 18.6 % (11.5-14.5)
[2018-02-04 04:47] LABS: CALCIUM 8.1 mg/dL (8.5-10.1); CARBON DIOXIDE 22.4 mmol/L (21-32); CHLORIDE SERUM 121 mmol/L (98-107); CREATININE SERUM 1.8 mg/dL (0.6-1.0); GLUCOSE SERUM 88 mg/dL (74-106); MAGNESIUM 1.8 mg/dL (1.8-2.4); PHOSPHOROUS 3.4 mg/dL (2.5-4.9); POTASSIUM SERUM 3.5 mmol/L (3.5-5.1); SODIUM SERUM 152 mmol/L (136-145)
[2018-02-04 11:53] LABS: RED BLOOD CELLS 3.22 M/mm3 (4.10-5.10)
[2018-02-04 12:14] LABS: IRON 31 ug/dL (50-170); TOTAL IRON BINDING CAPACITY 88 ug/dL (250-450)
[2018-02-05] VITALS (13 sets, daily range): BP systolic 92–124; BP diastolic 47–93
[2018-02-05 05:27] LABS: BASOPHIL % 0.2 % (0-2); PLATELET COUNT 368 x10^3mcL (130-400)
[2018-02-05 05:35] LABS: RED CELL DISTRIBUTION WIDTH 19.3 % (11.5-14.5)
[2018-02-05 05:38] LABS: CALCIUM 7.6 mg/dL (8.5-10.1); CARBON DIOXIDE 22.5 mmol/L (21-32); CHLORIDE SERUM 127 mmol/L (98-107); CREATININE SERUM 1.9 mg/dL (0.6-1.0); GLUCOSE SERUM 120 mg/dL (74-106); MAGNESIUM 1.6 mg/dL (1.8-2.4); PHOSPHOROUS 2.5 mg/dL (2.5-4.9); POTASSIUM SERUM 3.2 mmol/L (3.5-5.1)
[2018-02-05 05:45] LABS: SODIUM SERUM 159 mmol/L (136-145)
[2018-02-05 14:00] LABS: BASOPHIL % 0.5 % (0-2); PLATELET COUNT 335 x10^3mcL (130-400)
[2018-02-05 14:03] LABS: CALCIUM 7.6 mg/dL (8.5-10.1); CARBON DIOXIDE 23.2 mmol/L (21-32); CHLORIDE SERUM 126 mmol/L (98-107); CREATININE SERUM 1.7 mg/dL (0.6-1.0); GLUCOSE SERUM 89 mg/dL (74-106); POTASSIUM SERUM 3.1 mmol/L (3.5-5.1); SODIUM SERUM 156 mmol/L (136-145)
[2018-02-05 14:05] LABS: RED CELL DISTRIBUTION WIDTH 19.9 % (11.5-14.5)
[2018-02-05 23:53] LABS: CALCIUM 7.8 mg/dL (8.5-10.1); CARBON DIOXIDE 22.4 mmol/L (21-32); CHLORIDE SERUM 128 mmol/L (98-107); CREATININE SERUM 1.6 mg/dL (0.6-1.0); GLUCOSE SERUM 110 mg/dL (74-106); POTASSIUM SERUM 3.3 mmol/L (3.5-5.1); SODIUM SERUM 158 mmol/L (136-145)
[2018-02-06 03:10] VITALS: BP 110/54
[2018-02-06 05:28] LABS: BASOPHIL % 0.2 % (0-2); PLATELET COUNT 323 x10^3mcL (130-400)
[2018-02-06 05:50] LABS: CARBON DIOXIDE 24.4 mmol/L (21-32); CHLORIDE SERUM 128 mmol/L (98-107); CREATININE SERUM 1.6 mg/dL (0.6-1.0); GLUCOSE SERUM 79 mg/dL (74-106); MAGNESIUM 2.7 mg/dL (1.8-2.4); POTASSIUM SERUM 3.3 mmol/L (3.5-5.1); SODIUM SERUM 158 mmol/L (136-145)
[2018-02-06 07:43] VITALS: Ht 172.7 cm; Wt 74.1 kg
[2018-02-06 08:12] VITALS: BP 99/58
[2018-02-06 08:27] VITALS: BP 99/58
[2018-02-06 12:33] VITALS: BP 96/77
[2018-02-06 20:00] VITALS: BP 114/73
[2018-02-06 20:44] LABS: CALCIUM 8.1 mg/dL (8.5-10.1); CARBON DIOXIDE 22.5 mmol/L (21-32); CHLORIDE SERUM 125 mmol/L (98-107); CREATININE SERUM 1.7 mg/dL (0.6-1.0); GLUCOSE SERUM 81 mg/dL (74-106); SODIUM SERUM 154 mmol/L (136-145)
[2018-02-07] VITALS: BP 114/64
[2018-02-07 04:00] VITALS: BP 109/72
[2018-02-07 05:16] LABS: BASOPHIL % 0.6 % (0-2); PLATELET COUNT 294 x10^3mcL (130-400)
[2018-02-07 05:30] LABS: RED CELL DISTRIBUTION WIDTH 19.8 % (11.5-14.5)
[2018-02-07 05:36] LABS: CALCIUM 8.2 mg/dL (8.5-10.1); CARBON DIOXIDE 23.7 mmol/L (21-32); CHLORIDE SERUM 128 mmol/L (98-107); CREATININE SERUM 1.7 mg/dL (0.6-1.0); GLUCOSE SERUM 84 mg/dL (74-106); PHOSPHOROUS 2.4 mg/dL (2.5-4.9); POTASSIUM SERUM 3.3 mmol/L (3.5-5.1); SODIUM SERUM 157 mmol/L (136-145)
[2018-02-07 07:30] VITALS: BP 91/54
[2018-02-07 11:45] VITALS: BP 113/94
[2018-02-07 15:45] VITALS: BP 108/63
[2018-02-07 20:00] VITALS: BP 70/46
[2018-02-07 20:42] LABS: CALCIUM 8.8 mg/dL (8.5-10.1); CARBON DIOXIDE 24.5 mmol/L (21-32); CHLORIDE SERUM 129 mmol/L (98-107); CREATININE SERUM 1.9 mg/dL (0.6-1.0); GLUCOSE SERUM 77 mg/dL (74-106); POTASSIUM SERUM 3.1 mmol/L (3.5-5.1)
[2018-02-07 20:44] LABS: SODIUM SERUM 159 mmol/L (136-145)
[2018-02-08] VITALS: BP 113/73
[2018-02-08 00:56] LABS: CALCIUM 8.9 mg/dL (8.5-10.1); CARBON DIOXIDE 27.5 mmol/L (21-32); CHLORIDE SERUM 128 mmol/L (98-107); GLUCOSE SERUM 90 mg/dL (74-106); POTASSIUM SERUM 3.3 mmol/L (3.5-5.1)
[2018-02-08 01:05] LABS: SODIUM SERUM 159 mmol/L (136-145)
[2018-02-08 05:28] LABS: BASOPHIL % 0.2 % (0-2); PLATELET COUNT 305 x10^3mcL (130-400)
[2018-02-08 05:33] LABS: RED CELL DISTRIBUTION WIDTH 20.2 % (11.5-14.5)
[2018-02-08 05:44] LABS: CALCIUM 9.1 mg/dL (8.5-10.1); CARBON DIOXIDE 24.7 mmol/L (21-32); CHLORIDE SERUM 128 mmol/L (98-107); CREATININE SERUM 2.1 mg/dL (0.6-1.0); POTASSIUM SERUM 3.7 mmol/L (3.5-5.1)
[2018-02-08 05:47] LABS: SODIUM SERUM 160 mmol/L (136-145)
[2018-02-08 05:48] LABS: GLUCOSE SERUM 41 mg/dL (74-106)
[2018-02-08 08:00] VITALS: BP 97/65
== END 2018-02-08 13:05 | disposition expired | DRG 871 ==
LOC: ED 20:45 → IC 02-03 00:09 → DU 02-03 00:09 → IC 02-03 11:03
PROVIDERS: Emergency Medicine; Family Medicine
PROC: 02HV33Z Insertion of Infusion Device into Superior Vena Cava, Percutaneous Approach (ICD-10-PCS; principal; 2018-02-03)
PROC: 5A09357 Assistance with Respiratory Ventilation, Less than 24 Consecutive Hours, Continuous Positive Airway Pressure (ICD-10-PCS; 2018-02-08)
DX: A41.9 Sepsis, unspecified organism (principal); R65.21 Severe sepsis with septic shock; J69.0 Pneumonitis due to inhalation of food and vomit; N17.0 Acute kidney failure with tubular necrosis; E43 Unspecified severe protein-calorie malnutrition; J96.01 Acute respiratory failure with hypoxia; G93.41 Metabolic encephalopathy; N39.0 Urinary tract infection, site not specified; C79.31 Secondary malignant neoplasm of brain; C34.91 Malignant neoplasm of unspecified part of right bronchus or lung; E87.2 Acidosis; E87.0 Hyperosmolality and hypernatremia; E78.5 Hyperlipidemia, unspecified; M19.90 Unspecified osteoarthritis, unspecified site; K21.9 Gastro-esophageal reflux disease without esophagitis; R31.9 Hematuria, unspecified; R73.03 Prediabetes; N31.2 Flaccid neuropathic bladder, not elsewhere classified; I73.9 Peripheral vascular disease, unspecified; N18.9 Chronic kidney disease, unspecified; D64.9 Anemia, unspecified; Z51.5 Encounter for palliative care; E83.51 Hypocalcemia; B96.5 Pseudomonas (aeruginosa) (mallei) (pseudomallei) as the cause of diseases classified elsewhere; Z88.2 Allergy status to sulfonamides; Z91.041 Radiographic dye allergy status; Z90.49 Acquired absence of other specified parts of digestive tract; Z98.49 Cataract extraction status, unspecified eye; Z87.891 Personal history of nicotine dependence; Z79.899 Other long term (current) drug therapy; Z90.2 Acquired absence of lung [part of]; Z68.22 Body mass index [BMI] 22.0-22.9, adult; Z93.6 Other artificial openings of urinary tract status
CPT/HCPCS: 36556; 36600; 83880; 84439; 92610-GN; 97110-GP; 97530-GP; C9113; J0132; J0770; J1642; J1940; J1956; J2060; J2270; J2405; J2543; J3010; J3475; J3480; J3490; J7030; J7060; J7613; J7620; J7644; P9045; Q0092; Q9966